=== PATIENT | female | born 1950 | race Hispanic/Latino ===

== ENCOUNTER 2018-01-05 14:16 | Outpatient (CLI) | payer MEDICARE, OTHER ==
--- NOTE | 2018-01-05 16:02 | MRI ---
MRI OF RIGHT SHOULDER PERFORMED WITHOUT CONTRAST ENHANCEMENT: 01/05/18 HISTORY: Right shoulder pain, limited range of motion. There are moderate AC joint hypertrophic changes with a laterally downsloping acromion. There is a high grade supraspinatus tendon tear involving greater than 50% of the thickness of the te ndon. Fairly prominent retraction of some of the undersurface articular sided fibers by as much as 2. 3 cm. The more bursal sided fibers show combination of tendinopathy and tear. I believe that there is probably some fullness component to this tear approximately 1.6 cm from the insertion on the greater tuberosity where the tendon looks particularly irregular. There appears to be minimal delaminating c omponent extending into the infraspinatus tendon. There is tendinotic appearance to the superior fibers of the subscapularis tendon. There is tendinopa thy changes of the biceps tendon. The biceps tendon is in normal position within the bicipital groove , but appears slightly subluxed into the substance of the torn fibers. There are marked arthritic changes of the glenohumeral joint space. Prominent subchondral cystic kearney ge and evidence of articular cartilage loss involving more of the anterior inferior glenoid. There is also irregular truncated appearance to the posterior superior labrum. The inferior glenohumeral liga ment is intact. There is some minimal atrophy to the teres minor muscle. No significant atrophy to the supra or infra spinatus muscles or subscapularis muscle. IMPRESSION: 1. High grade tear of the supraspinatus tendon as discussed above probably with some full thickn ess component to the tear. There is also a partial undersurface of the superior fibers of the subscap ularis tendon. 2. Tendinotic appearance to the intra-articular portion of the biceps tendon with evidence of a posterior superior labral tear. 3. Arthritic changes of the glenohumeral joint space with subchondral bone cystic change involvi ng the anterior inferior glenoid. POS: [facility]
== END 2018-01-05 14:17 | disposition home or self-care (01) ==
LOC: TBSIIMAG 14:16
PROVIDERS: ATTEND Orthopaedic Surgery
DX: M25.511 Pain in right shoulder (principal); M75.111 Incomplete rotator cuff tear or rupture of right shoulder, not specified as traumatic; S43.491A Other sprain of right shoulder joint, initial encounter; M19.011 Primary osteoarthritis, right shoulder

== ENCOUNTER 2018-01-31 14:04 | Outpatient (CLI) | payer MEDICARE, OTHER ==
[2018-01-31 15:44] LABS: #Basophils 0.1 thou/uL (0.0-0.2); #Eosinphils 0.2 thou/uL (0.0-0.7); #Lymphocytes 2.7 thou/uL (1.20-3.40); #Monocytes 0.5 thou/uL (0.11-0.59); #Neutrophils 6.2 thou/uL (1.40-6.50); %Basophils 0.7 % (0.0-1.0); %Eosinophils 2.5 % (0.0-10.0); %Neutrophils 63.8 % (42.0-75.0); Mean Corpuscular HGB CONC 34.3 g/dL (32.0-36.0); Mean Corpuscular Volume 96.1 fL (78.0-98.0); Mean Platelet Volume 7.4 fL (7.4-10.4); Platelet Count 221 thou/uL (130-400); RBC Distribution Width 11.8 % (11.5-14.5); Red Blood Cell (RBC) Count 4.24 mill/uL (4.20-5.40); White Blood Cell (WBC) Count 9.7 thou/uL (4.8-10.8)
== END 2018-01-31 14:05 | disposition home or self-care (01) ==
LOC: LABBT 14:04
PROVIDERS: ATTEND Orthopaedic Surgery
DX: Z01.818 Encounter for other preprocedural examination (principal); M75.101 Unspecified rotator cuff tear or rupture of right shoulder, not specified as traumatic
CPT/HCPCS: 85025; 93005; 93010

== ENCOUNTER 2019-07-04 12:12 | Outpatient (CLI) | payer MEDICARE, OTHER ==
--- NOTE | 2019-07-11 13:25 | MMO ---
Bilateral MAMMO Bilat Screen [facility]. CLINICAL HISTORY: Patient is 68 years old and is seen for screening. The patient has the following family history of breast cancer: sister, at age 40; sister, at age 51; sister, at age 53, malignant (generic) and niece, malignant (generic), X2. The patient has no personal history of cancer. VIEWS: The views performed were: bilateral craniocaudal with tomosynthesis; bilateral mediolateral oblique with tomosynthesis; and right mediolateral oblique. FILMS COMPARED: The present examination has been compared to prior imaging studies performed at [facility] on 06/24/2008 and 11/02/2015. This study has been interpreted with the assistance of computer-aided detection. MAMMOGRAM FINDINGS: There are scattered fibroglandular densities. There are no suspicious masses, suspicious calcifications, or new areas of architectural distortion. IMPRESSION: THERE IS NO MAMMOGRAPHIC EVIDENCE OF MALIGNANCY. A ROUTINE FOLLOW-UP MAMMOGRAM IN 1 YEAR IS RECOMMENDED. THE RESULTS OF THIS EXAM WERE SENT TO THE PATIENT. ACR BI-RADS Category 1 - Negative MAMMOGRAPHY NOTE: 1. A negative mammogram report should not delay a biopsy if a dominant of clinically suspicious mass is present. 2. Approximately 10% to 15% of breast cancers are not detected by mammography. 3. Adenosis and dense breasts may obscure an underlying neoplasm. Reported by: IDALIA TATUM MD Electonically Signed: [id number]
== END 2019-07-04 12:13 | disposition home or self-care (01) ==
LOC: BICMAMMO 12:12
PROVIDERS: ATTEND Clinical Nurse Specialist Medical-Surgical
DX: Z12.31 Encounter for screening mammogram for malignant neoplasm of breast (principal); Z80.3 Family history of malignant neoplasm of breast
CPT/HCPCS: 77063; 77067

== ENCOUNTER 2020-03-03 20:27 | Emergency (ER) | payer MEDICARE, OTHER ==
--- NOTE | 2020-03-03 22:01 | ULT ---
EXAM: Bilateral lower extremity venous ultrasound HISTORY: Bilateral lower extremity edema and pain. Fall. COMPARISON: None TECHNIQUE: Multiplanar grayscale and color Doppler images were obtained in a bilateral lower extremit y venous ultrasound. Spectral analysis of the Doppler waveforms were performed. FINDINGS: The bilateral common femoral vein, profunda femoral veins, superficial femoral veins, and p opliteal veins are normal in appearance without visible thrombus. These vessels demonstrate normal compression, flow, and augmentation. The bilateral posterior tibial veins, profunda femoral veins and greater saphenous veins are patent w ithout evidence of DVT. IMPRESSION: No evidence of DVT in the left or right lower extremity.
== END 2020-03-03 23:30 | disposition home or self-care (01) ==
LOC: ERS 20:27
DX: S80.01XA Contusion of right knee, initial encounter (principal); I10 Essential (primary) hypertension; M19.90 Unspecified osteoarthritis, unspecified site; F32.9 Major depressive disorder, single episode, unspecified; Z79.899 Other long term (current) drug therapy; W19.XXXA Unspecified fall, initial encounter
CPT/HCPCS: 93970

== ENCOUNTER 2023-07-18 12:50 | Outpatient (CLI) | payer MEDICARE, OTHER | END 2023-07-18 12:51 | disposition home or self-care (01) | LOC: BICMAMMO 12:50 | PROVIDERS: ATTEND Registered Nurse Hospice | DX: Z12.31 Encounter for screening mammogram for malignant neoplasm of breast (principal); Z80.3 Family history of malignant neoplasm of breast | CPT/HCPCS: 77063; 77067 ==

== ENCOUNTER 2023-07-20 18:35 | Emergency (ER) | payer MEDICARE, OTHER ==
[2023-07-20] MEDS ORDERED: HYDROcodone/Acetaminophen 5/325 mg Tablet ONE (20:16)
[2023-07-20] MEDS ORDERED: predniSONE 20 MG TAB ONE (21:55)
== END 2023-07-20 23:06 | disposition home or self-care (01) ==
LOC: ERS 18:35
DX: S93.401A Sprain of unspecified ligament of right ankle, initial encounter (principal); M25.471 Effusion, right ankle; I10 Essential (primary) hypertension; E78.5 Hyperlipidemia, unspecified; M19.90 Unspecified osteoarthritis, unspecified site; W11.XXXA Fall on and from ladder, initial encounter; Z79.899 Other long term (current) drug therapy
CPT/HCPCS: J7512